=== PATIENT | female | born 1975 | race Caucasian/White ===

== ENCOUNTER 2018-03-07 23:44 | Inpatient (IN) ==
[2018-03-08] MEDS ORDERED: Diphtheria/Tetanus/Pertussis Vaccine Inj 0.5 ML Syringe IM ONE (00:03)
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
[2018-03-08] MEDS ORDERED: ceFAZolin 2 GM Premix Inj 2 GM/50 ML PIGGYBACK IV.SIG ONE (00:06)
[2018-03-08] MEDS ORDERED: fentaNYL Citrate Inj 100 MCG/2 ML Ampul IV.PUSH ONE ×2 (00:06→02:45)
[2018-03-08] MEDS ORDERED: Ketorolac Inj 30 MG/ML (IVP) Vial IV.PUSH ONE (00:08)
[2018-03-08 00:49] LABS: Baso # (Auto) 0.1 th/mm3 (0.0-0.2); Baso % (Auto) 0.7 % (0.0-2.0); Eos # (Auto) 0.5 th/mm3 (0.0-0.4); Eos % (Auto) 5.1 % (0.0-4.0); Hematocrit 39.8 % (35.0-46.0); Hemoglobin 13.5 gm/dL (11.6-15.3); Lymph % (Auto) 21.9 % (9.0-44.0); Mean Corpuscular Hemoglobin 32.2 pg (27.0-34.0); Mean Corpuscular Volume 94.6 fL (80.0-100.0); Mean Platelet Volume 8.5 fL (7.0-11.0); Mono # (Auto) 0.7 th/mm3 (0.0-0.9); Mono % (Auto) 7.6 % (0.0-8.0); Neut # (Auto) 5.9 th/mm3 (1.8-7.7); Neut % (Auto) 64.7 % (16.0-70.0); Platelet Count 258 th/mm3 (150-450); Red Blood Count 4.21 mil/mm3 (4.00-5.30); Red Cell Distribution Width 12.9 % (11.6-17.2); White Blood Count 9.1 th/mm3 (4.0-11.0)
[2018-03-08 01:06] LABS: Alanine Aminotransferase 36 U/L (10-53); Albumin 3.9 g/dL (3.4-5.0); Anion Gap 10 meq/L (5-15); Aspartate Aminotransferase 40 U/L (15-37); Blood Urea Nitrogen 12 mg/dL (7-18); Calcium 8.9 mg/dL (8.5-10.1); Carbon Dioxide 26.7 meq/L (21.0-32.0); Chloride 107 meq/L (98-107); Glomerular Filtration Rate 64 mL/min (>89); Glucose,Random 97 mg/dL (74-106); Potassium 3.8 meq/L (3.5-5.1); Sodium 144 meq/L (136-145)
[2018-03-08 01:09] LABS: Alkaline Phosphatase 91 U/L (45-117); Total Protein 7.7 g/dL (6.4-8.2)
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
[2018-03-08] MEDS ORDERED: Lidocaine 2%/Epinephrine 1:100,000 30 ML MDV INFILTRATN ONE (03:47)
[2018-03-08] MEDS ORDERED: Morphine Inj 4 MG/ML Vial IV.PUSH PRN (03:49)
[2018-03-08] MEDS ORDERED: Bisacodyl 10 MG Supp RECTAL PRN ×2 (03:50→12:27)
[2018-03-08] MEDS ORDERED: Acetaminophen 325 MG Tablet PO PRN (03:50)
[2018-03-08] MEDS ORDERED: Lidocaine 2%/Epinephrine 1;100,000 Inj 50 ML Vial ONE (03:52)
[2018-03-08] MEDS: Sod Chloride 0.9% Inj 1,000 ML IV.CONT SCH ×2 (04:18→14:10)
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
[2018-03-08] MEDS: HYDROmorphone PF Inj 2 MG/ML Vial IV.PUSH PRN ×4 (06:14→22:21)
[2018-03-08] MEDS: Levothyroxine 100 MCG Tablet PO SCH (06:16)
[2018-03-08] MEDS: Venlafaxine XR 75 MG Capsule PO SCH (09:41)
[2018-03-08] MEDS: Senna/Docusate Sodium 8.6/50 MG Tablet PO SCH ×3 (09:41→22:22)
[2018-03-08] MEDS ORDERED: Phenylephrine/NS 1000 MCG/10ML Syringe IV.PUSH ONE (10:22)
[2018-03-08] MEDS ORDERED: Glycopyrrolate Inj 1 MG/5 ML Syringe IV.PUSH ONE (10:22)
[2018-03-08] MEDS ORDERED: Neostigmine Inj 5 MG/5 ML Syringe IV.PUSH ONE (10:22)
[2018-03-08] MEDS ORDERED: Lidocaine PF 1% Inj 5 ML Syringe OTHER ONE (10:22)
[2018-03-08] MEDS ORDERED: Tranexamic Acid Inj 1,000 MG/10 ML Ampul ONE (11:08)
[2018-03-08] MEDS ORDERED: TRANEXAMIC ACID IV.SIG SCH (12:00)
[2018-03-08] MEDS ORDERED: SODIUM CHLOR 0.9% IV.SIG SCH (12:00)
[2018-03-08] MEDS ORDERED: Post-op Orders (for Pharmacy) OTHER STA (12:27)
[2018-03-08] MEDS ORDERED: Promethazine 25 MG Supp RECTAL PRN (12:27)
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
[2018-03-08] MEDS ORDERED: fentaNYL Citrate Inj 100 MCG/2 ML Ampul ONE ×2 (13:00)
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
[2018-03-08] MEDS: Anastrozole 1 MG Tablet PO SCH (14:06)
[2018-03-08] MEDS: ceFAZolin Inj 2,000 MG in Sodium Chlor 0.9% Inj 80 ML IV.SIG SCH (16:22)
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
[2018-03-08] MEDS: Morphine Inj 4 MG/ML Vial IV.PUSH PRN (20:42)
[2018-03-08] MEDS: Zolpidem Tartrate 5 MG Tablet PO PRN (22:21)
[2018-03-09] MEDS: Sod Chloride 0.9% Inj 1,000 ML IV.CONT SCH ×4 (00:13→23:04)
[2018-03-09] MEDS: ceFAZolin Inj 2,000 MG in Sodium Chlor 0.9% Inj 80 ML IV.SIG SCH ×2 (00:13→06:41)
[2018-03-09] MEDS: Morphine Inj 4 MG/ML Vial IV.PUSH PRN ×4 (01:01→16:20)
[2018-03-09] MEDS: HYDROmorphone PF Inj 2 MG/ML Vial IV.PUSH PRN ×5 (04:50→23:01)
[2018-03-09] MEDS: Levothyroxine 100 MCG Tablet PO SCH (06:41)
[2018-03-09] MEDS: Multivitamin/Minerals Therapeutic Tablet PO SCH (08:23)
[2018-03-09] MEDS: Venlafaxine XR 75 MG Capsule PO SCH (08:23)
[2018-03-09] MEDS: Senna/Docusate Sodium 8.6/50 MG Tablet PO SCH ×4 (08:26→20:39)
[2018-03-09] MEDS: Anastrozole 1 MG Tablet PO SCH (08:27)
[2018-03-09] MEDS: Folic Acid 1 MG Tablet PO SCH (08:27)
[2018-03-09 10:14] LABS: Baso % (Auto) 0.3 % (0.0-2.0); Eos % (Auto) 0.3 % (0.0-4.0); Hematocrit 31.6 % (35.0-46.0); Hemoglobin 10.9 gm/dL (11.6-15.3); Lymph # (Auto) 1.2 th/mm3 (1.0-4.8); Mean Corpuscular HGB Conc 34.4 % (32.0-36.0); Mean Corpuscular Hemoglobin 32.9 pg (27.0-34.0); Mean Corpuscular Volume 95.6 fL (80.0-100.0); Mean Platelet Volume 8.9 fL (7.0-11.0); Mono # (Auto) 1.3 th/mm3 (0.0-0.9); Neut # (Auto) 6.9 th/mm3 (1.8-7.7); Neut % (Auto) 72.4 % (16.0-70.0); Platelet Count 209 th/mm3 (150-450); Red Blood Count 3.31 mil/mm3 (4.00-5.30); Red Cell Distribution Width 13.3 % (11.6-17.2); White Blood Count 9.6 th/mm3 (4.0-11.0)
--- NOTE | 2018-03-09 10:16 | P.PNOP ---
Subjective Interval history: pain under control. Physical Exam Vital signs: Vital Signs 03/08/18 12:55 03/08/18 13:05 03/08/18 13:15 Temperature 98.2 F Pulse Rate 71 85 82 Respiratory Rate 16 15 16 Blood Pressure 98/54 L 92/51 L 103/55 L Pulse Oximetry 95 97 96 03/08/18 13:30 03/08/18 16:00 03/08/18 20:00 Temperature 97.8 F 97.7 F 97.9 F Pulse Rate 88 96 H 99 H Respiratory Rate 16 18 16 Blood Pressure 105/56 L 116/55 L 113/65 Pulse Oximetry 95 95 96 03/09/18 00:00 03/09/18 04:00 03/09/18 09:00 Temperature 98.1 F 98.1 F Pulse Rate 113 H 123 H Respiratory Rate 16 17 Blood Pressure 105/55 L 110/52 L 111/54 L Pulse Oximetry 97 95 03/09/18 09:32 Temperature 98.8 F Pulse Rate 124 H Respiratory Rate 16 Blood Pressure 94/54 L Pulse Oximetry 96 Intake & Output 03/08/18 03/09/18 03/09/18 18:59 06:59 18:59 Intake Total 1520 / 1520 2420 / 2420 100 / 100 Output Total 800 / 800 550 / 550 Balance 720 / 720 1870 / 1870 100 / 100 Weight 61.7 kg Intake: IV 320 / 320 900 / 900 100 / 100 NS Inj 1,000 ML @ 100 mls/hr IV 200 / 200 800 / 800 .CONT .Q10H [facility] Rx#:[id number] Cyklokapron Inj 1,000 MG In NS 20 / 20 Inj 10 ML @ 200 mls/hr IV.SIG ONCE [facility] Rx#:[id number] Ancef Inj 2,000 MG In NS Inj 80 100 / 100 100 / 100 100 / 100 ML @ 200 mls/hr IV.SIG Q8H [facility] Rx#:[id number] Oral 1520 / 1520 Anesthesia Amount 1200 / 1200 Output: Estimated Blood Loss 100 / 100 Urine Amount (Catheter) 700 / 700 550 / 550 Indwelling Urethral Catheter 700 / 700 550 / 550 Other: # Voids 0 Date of Last Bowel Movement 03/06/18 03/06/18 03/07/18 # Bowel Movements 0 Narrative: RUE: sling, mild swelling and tenderness distal clavicle, nvi, sensation intact , appropriate health information director strength RLE: CKS and dressing intact, nvi, able to flex and extend ankle and toes, cap refill - Urinary Catheter Management Indwelling Urethral Catheter Cath placed during this visit: yes Reason for continuing: Hourly intake/output Insertion date: 03/08/18 Insertion time: 00:00 Results - Labs CBC & Chem 7: 03/08/18 00:45 03/08/18 00:45 - Imaging Impressions Femur X-Ray 03/08/18 00:00 CONCLUSION: Successful ORIF. Assessment and Plan - Ortho Post Op Day # 1 - Assessment and Plan s/p ORIF R distal femur fx POD#1 (03/08/18) R distal clavicle fx non-op NWB RUE and RLE no ROM RLE as of yet lovenox daily dressing changes RLE sling RUE f/up dr. sheikh 2 weeks
[2018-03-09 11:19] LABS: Alanine Aminotransferase 20 U/L (10-53); Albumin 2.8 g/dL (3.4-5.0); Alkaline Phosphatase 70 U/L (45-117); Anion Gap 7 meq/L (5-15); Aspartate Aminotransferase 31 U/L (15-37); Blood Urea Nitrogen 10 mg/dL (7-18); Calcium 7.9 mg/dL (8.5-10.1); Chloride 108 meq/L (98-107); Glomerular Filtration Rate 66 mL/min (>89); Glucose,Random 88 mg/dL (74-106); Potassium 3.6 meq/L (3.5-5.1); Sodium 142 meq/L (136-145)
[2018-03-09] MEDS: Enoxaparin Inj 40 MG/0.4 ML Syringe SQ SCH (11:43)
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
[2018-03-09] MEDS ORDERED: ALPRAZolam 0.25 MG Tablet PO PRN ×2 (14:41→14:43)
[2018-03-09 18:29] LABS: Amphetamine Screen,Urine Neg (Neg); Barbiturate Screen,Urine Neg (Neg); Cannabinoid Screen,Urine Neg (Neg); Cocaine Screen,Urine Neg (Neg)
[2018-03-09 18:31] LABS: Opiate Screen,Urine Pos (Neg)
[2018-03-09] MEDS: Zolpidem Tartrate 5 MG Tablet PO PRN (23:02)
[2018-03-10] MEDS: Sod Chloride 0.9% Inj 1,000 ML IV.CONT SCH ×2 (02:25→15:29)
[2018-03-10] MEDS: HYDROmorphone PF Inj 2 MG/ML Vial IV.PUSH PRN ×5 (03:16→22:49)
[2018-03-10] MEDS: Levothyroxine 100 MCG Tablet PO SCH (06:29)
[2018-03-10 08:16] LABS: Hematocrit 27.7 % (35.0-46.0); Hemoglobin 9.5 gm/dL (11.6-15.3)
[2018-03-10] MEDS: Folic Acid 1 MG Tablet PO SCH (08:35)
[2018-03-10] MEDS: Venlafaxine XR 75 MG Capsule PO SCH (08:35)
[2018-03-10] MEDS: Multivitamin/Minerals Therapeutic Tablet PO SCH (08:35)
[2018-03-10] MEDS: Senna/Docusate Sodium 8.6/50 MG Tablet PO SCH ×4 (08:36→22:00)
[2018-03-10] MEDS: Anastrozole 1 MG Tablet PO SCH (08:36)
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
[2018-03-10] MEDS: Enoxaparin Inj 40 MG/0.4 ML Syringe SQ SCH (11:11)
[2018-03-10] MEDS: Morphine Inj 4 MG/ML Vial IV.PUSH PRN (11:53)
--- NOTE | 2018-03-10 12:48 | P.PNOP ---
Subjective Interval history: pain currently controlled. Physical Exam Vital signs: Vital Signs 03/09/18 16:00 03/09/18 20:00 03/10/18 00:00 Temperature 98.0 F 99.7 F H 98.8 F Pulse Rate 130 H 132 H 122 H Respiratory Rate 14 18 17 Blood Pressure 109/61 117/55 L 139/65 Pulse Oximetry 98 95 96 03/10/18 04:00 03/10/18 08:00 03/10/18 08:35 Temperature 99.7 F H 99.2 F Pulse Rate 119 H 121 H Respiratory Rate 17 18 16 Blood Pressure 124/60 118/62 Pulse Oximetry 97 98 03/10/18 11:35 03/10/18 11:54 Temperature Pulse Rate Respiratory Rate 16 16 Blood Pressure Pulse Oximetry Intake & Output 03/09/18 03/10/18 03/10/18 18:59 06:59 18:59 Intake Total 1100 / 1100 720 / 720 Output Total 400 / 400 700 / 700 Balance 700 / 700 20 / 20 Intake: IV 1100 / 1100 NS Inj 1,000 ML @ 100 mls/hr IV 1000 / 1000 .CONT .Q10H [facility] Rx#:[id number] Ancef Inj 2,000 MG In NS Inj 80 100 / 100 ML @ 200 mls/hr IV.SIG Q8H [facility] Rx#:[id number] Oral 720 / 720 Output: Urine 400 / 400 700 / 700 Other: Date of Last Bowel Movement 03/07/18 03/06/18 03/07/18 Narrative: in chair, nad, with patient dressing/splint RLE intact - cks causing pressure sore posterior leg neg homans nvi - Urinary Catheter Management Indwelling Urethral Catheter Cath placed during this visit: yes Reason for continuing: Hourly intake/output Insertion date: 03/08/18 Insertion time: 00:00 Results - Labs CBC & Chem 7: 03/10/18 07:24 03/09/18 08:36 Laboratory Results - last 24 hr 03/09/18 03/10/18 17:00 07:24 Hgb 9.5 L Hct 27.7 L Urine Opiates Screen Pos H Ur Barbiturates Screen Neg Ur Amphetamines Screen Neg U Benzodiazepines Scrn Neg Urine Cocaine Screen Neg U Cannabinoids Screen Neg - Procedures 03/08- ORIF distal femur fracture Assessment and Plan - Ortho Post Op Day # 2 - Assessment and Plan s/p ORIF R distal femur fx POD#1 (03/08/18) R distal clavicle fx non-op NWB RUE and RLE no ROM RLE as of yet lovenox- d/c on asa 81 daily dressing changes RLE new CKS for RLE sling RUE ortho stable and cleared for d/c f/up dr. sheikh 2 weeks
[2018-03-11] MEDS: Sod Chloride 0.9% Inj 1,000 ML IV.CONT SCH ×4 (00:06→22:13)
[2018-03-11] MEDS: HYDROmorphone PF Inj 2 MG/ML Vial IV.PUSH PRN ×5 (04:04→22:12)
[2018-03-11] MEDS: Levothyroxine 100 MCG Tablet PO SCH (07:17)
[2018-03-11] MEDS: Senna/Docusate Sodium 8.6/50 MG Tablet PO SCH ×4 (08:33→22:13)
[2018-03-11] MEDS: Anastrozole 1 MG Tablet PO SCH (08:33)
[2018-03-11] MEDS: Multivitamin/Minerals Therapeutic Tablet PO SCH (08:33)
[2018-03-11] MEDS: Venlafaxine XR 75 MG Capsule PO SCH (08:34)
[2018-03-11] MEDS: Folic Acid 1 MG Tablet PO SCH (08:34)
--- NOTE | 2018-03-11 09:10 | P.PNOP ---
Subjective Interval history: pain under control. Physical Exam Vital signs: Vital Signs 03/10/18 11:35 03/10/18 11:54 03/10/18 12:00 Temperature 98.4 F Pulse Rate 122 H Respiratory Rate 16 16 18 Blood Pressure 125/64 Pulse Oximetry 95 03/10/18 14:07 03/10/18 14:31 03/10/18 16:00 Temperature 99.4 F Pulse Rate 123 H Respiratory Rate 16 16 18 Blood Pressure 109/68 Pulse Oximetry 92 L 03/10/18 20:00 03/11/18 00:00 03/11/18 04:00 Temperature 98.8 F 100.8 F H 100.5 F H Pulse Rate 125 H 118 H Respiratory Rate 18 18 17 Blood Pressure 118/75 131/81 130/69 Pulse Oximetry 94 L 95 100 03/11/18 08:00 03/11/18 09:05 Temperature 98.7 F Pulse Rate 105 H Respiratory Rate 20 16 Blood Pressure 132/60 Pulse Oximetry 95 Intake & Output 03/10/18 03/11/18 03/11/18 18:59 06:59 18:59 Intake Total 1720 / 1720 1000 / 1000 Output Total 1095 / 1095 1350 / 1350 Balance 625 / 625 -350 / -350 Weight 66.7 kg Intake: IV 1000 / 1000 1000 / 1000 NS Inj 1,000 ML @ 100 mls/hr IV 1000 / 1000 1000 / 1000 .CONT .Q10H [facility] Rx#:[id number] Oral 720 / 720 Output: Urine 1095 / 1095 1350 / 1350 Other: Date of Last Bowel Movement 03/07/18 03/06/18 Narrative: working with PT, transferring from bed to . nad dressing and CKS intact nvi neg homans - Urinary Catheter Management Indwelling Urethral Catheter Cath placed during this visit: yes Reason for continuing: Hourly intake/output Insertion date: 03/08/18 Insertion time: 00:00 Results - Labs CBC & Chem 7: 03/10/18 07:24 03/09/18 08:36 - Procedures 03/08- ORIF distal femur fracture Assessment and Plan - Ortho Post Op Day # 3 - Assessment and Plan s/p ORIF R distal femur fx POD#3 (03/08/18) R distal clavicle fx non-op NWB RUE and RLE no ROM RLE as of yet lovenox- d/c on asa 81 daily dressing changes RLE CKS for RLE sling RUE ortho stable and cleared for d/c - snf vs home with c f/up dr. sheikh 2 weeks
[2018-03-11] MEDS: Enoxaparin Inj 40 MG/0.4 ML Syringe SQ SCH (12:03)
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
[2018-03-11] MEDS: Zolpidem Tartrate 5 MG Tablet PO PRN (23:38)
[2018-03-12] MEDS: Levothyroxine 100 MCG Tablet PO SCH (06:14)
[2018-03-12] MEDS: HYDROmorphone PF Inj 2 MG/ML Vial IV.PUSH PRN ×2 (06:15→12:01)
[2018-03-12] MEDS: Venlafaxine XR 75 MG Capsule PO SCH (09:37)
[2018-03-12] MEDS: Multivitamin/Minerals Therapeutic Tablet PO SCH (09:37)
[2018-03-12] MEDS: Folic Acid 1 MG Tablet PO SCH (09:37)
[2018-03-12] MEDS: Anastrozole 1 MG Tablet PO SCH (09:37)
[2018-03-12] MEDS: Senna/Docusate Sodium 8.6/50 MG Tablet PO SCH ×4 (09:37→23:42)
[2018-03-12] MEDS: Sod Chloride 0.9% Inj 1,000 ML IV.CONT SCH ×2 (10:40→18:58)
[2018-03-12] MEDS: Enoxaparin Inj 40 MG/0.4 ML Syringe SQ SCH (12:01)
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
[2018-03-12] MEDS: Zolpidem Tartrate 5 MG Tablet PO PRN (20:14)
[2018-03-13] MEDS: Sod Chloride 0.9% Inj 1,000 ML IV.CONT SCH ×2 (05:07→16:17)
[2018-03-13] MEDS: Levothyroxine 100 MCG Tablet PO SCH (06:11)
[2018-03-13] MEDS: Multivitamin/Minerals Therapeutic Tablet PO SCH (09:14)
[2018-03-13] MEDS: Venlafaxine XR 75 MG Capsule PO SCH (09:15)
[2018-03-13] MEDS: Folic Acid 1 MG Tablet PO SCH (09:15)
[2018-03-13] MEDS: Anastrozole 1 MG Tablet PO SCH (10:52)
[2018-03-13] MEDS: Senna/Docusate Sodium 8.6/50 MG Tablet PO SCH ×2 (10:52→13:41)
[2018-03-13] MEDS ORDERED: Magnesium Citrate Liq 300 ML Bottle PO ONE (11:27)
[2018-03-13] MEDS: oxyCODONE/Acetaminophen 10/325 Tablet PO PRN ×2 (12:13→16:18)
[2018-03-13 12:48] VITALS: PULSE 114; RESP 18
[2018-03-13] MEDS: Enoxaparin Inj 40 MG/0.4 ML Syringe SQ SCH (13:41)
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
[2018-03-13 19:00] VITALS: BP 115/59; TEMP 98.1; O2SAT 94
== END 2018-03-13 16:43 ==
LOC: NEPE 23:44 → NEDA 03-08 04:32 → N05 03-08 06:04
PROVIDERS: ADMIT Internal Medicine; ATTEND Hospitalist
PROC: ORIFFEM (2018-03-08 10:22)